=== PATIENT | female | born 1990 | race African-American/Black ===

== ENCOUNTER 2017-09-28 14:39 | Emergency (ER) | payer OTHER ==
--- NOTE | 2017-09-28 15:12 | PDOC ---
Attending Attestation - Resident Resident Name: Phil Goyal - HPI HPI: 09/28/17 15:41 Pt with history of severe MR, seizure disorder, presents to the ED complaining of generalized tonic clonic seizure today. Patient has a known history of seizure disorder, for which she takes phenobarb, and is at her baseline as per caretakers. Appeared to be in her usual state of health last night. - Physicial Exam PE: 09/28/17 15:50 Agree with resident's exam. Pt is non verbal and opens her eyes but does not follow commands. Has bilateral upper extremity contractures. Abdomen is soft and non tender. Lungs are clear. - Medical Decision Making 09/28/17 15:56 Pt presents to the ED after seizure. has know seizure disorder history for which she takes phenobarb. Will check labs to rule out electrolyte disturbance and check phenobarb level. Will reassess.
[2017-09-28 15:13] VITALS: TEMP 98.9; BMI 23.3
--- NOTE | 2017-09-28 15:21 | PDOC ---
History of Present Illness - General Chief Complaint: Seizure Stated Complaint: SEIZURE Time Seen by Provider: 09/28/17 15:11 - History of Present Illness Initial Comments: 09/28/17 17:17 The patient is a 26 year old female with history of cerebral palsy, seizures, developmental delay who presents for evaluation follow a seizure. The patient is non-verbal at baseline and is accompanied by an aid who assists in providing the history. The patient had a reported seizure at her program today prompting her presentation to the ED for evaluation. They note that the patient has a seizure once a year and is well controlled on phenobarb. They report that the patient's last seizure was a significant amount of time ago and is unsure of when her last seizure was. They report that the patient is back to baseline on presentation to the ED. Past History - Past Medical History Allergies/Adverse Reactions: Allergies Allergy/AdvReac Type Severity Reaction Status Date / Time No Known Allergies Allergy Verified 09/28/17 15:10 Home Medications: Ambulatory Orders Cholecalciferol (Vitamin D3) [Vitamin D3] 2,000 unit PO DAILY 10/07/13 Multivit with Iron,Minerals [Cerovite Jr] 1 each PO DAILY 10/07/13 Phenobarbital 8.1 mg PO HS 10/07/13 Polyethylene Glycol 3350 [Miralax 119 gm Btl -] 17 gr PO DAILY 10/07/13 Sennosides [Senna] 564 mg PO DAILY 10/07/13 Docusate Sodium 300 mg PO HS 09/28/17 Pedi Multivit 158/Iron/Vit K1 [Cerovite Jr Tablet Chew] 1 each PO DAILY Phenobarbital 64 mg PO HS 09/28/17 Asthma: Yes COPD: No Seizures: Yes - Immunization History Immunization Up to Date: Yes - Suicide/Smoking/Psychosocial Hx Smoking History: Never smoked Have you smoked in the past 12 months: No Information on smoking cessation initiated: No Hx Alcohol Use: No Drug/Substance Use Hx: No Review of Systems - Review of Systems Able to Perform ROS?: No (Cerebral Palsy) *Physical Exam - Vital Signs Last Vital Signs Temp Pulse Resp BP Pulse Ox 98.9 F 112 H 20 112/80 100 09/28/17 15:10 09/28/17 15:10 09/28/17 15:10 09/28/17 15:10 09/28/17 15:10 - Physical Exam Comments: 09/28/17 18:20 General Appearance: Nourished. No Apparent Distress HEENT: No Pharyngeal Erythema, Tonsillar Exudate, Tonsillar Erythema Neck: No Cervical Lymphadenopathy Respiratory/Chest: Lungs Clear, Normal Breath Sounds. No Crackles, Rales, Rhonchi, Wheezing Cardiovascular: Regular Rhythm, Regular Rate. 2/6 Systolic murmur noted on exam. No Gallops, Rubs Gastrointestinal/Abdominal: Normal Bowel Sounds, Soft. No Guarding, Rebound, Tenderness Musculoskeletal: No CVA Tenderness Extremity: Normal Capillary Refill Integumentary: Normal Color, Dry, Warm Neurologic: Alert, At Baseline Mentally. Arms are contracted bilaterally. ED Treatment Course - LABORATORY CBC & Chemistry Diagram: 09/28/17 16:38 09/28/17 16:38 Medical Decision Making - Medical Decision Making 09/28/17 18:22 The patient is a 26 year old female with history of cerebral palsy, seizures, developmental delay who presents for evaluation follow a seizure. Differential includes but is not limited to: Normal Seizure, Breakthrough Seizure, Infectious , Metabolic derangement. Given the patient's history, we will obtain a cbc, cmp , ua, urine culture to evaluate further for possible etiologies. It is likely the patient had her normal seizure today. We will continue to monitor and reassess while here in the ED. 09/28/17 18:59 CBC, cmp, ua are unremarkable. The patient has been clinically stable on exam here. We are comfortable discharging the patient home at this time with neurology follow up. The patient has her own neurologist at her facility. We discussed the results, plan, and return precautions with the patient's aid who voiced understanding and is agreeable with the plan. *DC/Admit/Observation/Transfer Diagnosis at time of Disposition: Seizure Qualifiers: Convulsion type: unspecified Qualified Code(s): R56.9 - Unspecified convulsions - Discharge Dispostion Disposition: HOME Condition at time of disposition: Stable Decision to Admit order: No - Referrals - Patient Instructions Printed Discharge Instructions: DI for Seizure Disorder -- Adult Additional Instructions: Please return to the ER if you experience concerning or worsening symptoms including worsening seizures, fevers, or other concerning symptoms. Your lab results were normal here in the ER. Please make sure that you call to schedule a follow up appointment with your neurologist and primary care provider within 1 day to discuss your ER visit and further management of your symptoms. - Post Discharge Activity
[2017-09-28 16:57] LABS: BASO % 0.5 % (0-2.0); EOS % 1.2 % (0-4.5); HEMATOCRIT 41.2 % (32.4-45.2); HEMOGLOBIN 13.6 GM/dL (10.7-15.3); MCH 31.6 pg (25.7-33.7); MEAN CELL VOLUME 95.9 fl (80-96); MONO % 7.2 % (3.8-10.2); NEUT % 72.1 % (42.8-82.8); PLATELET COUNT 537 K/MM3 (134-434); RDW 14.4 % (11.6-15.6); WHITE BLOOD COUNT 11.6 K/mm3 (4.0-10.0)
[2017-09-28 17:31] LABS: ALBUMIN 3.8 g/dl (3.4-5.0); ANION GAP 8 (8-16); BLOOD UREA NITROGEN 6 mg/dL (7-18); CALCIUM 9.2 mg/dL (8.5-10.1); CHLORIDE 103 mmol/L (98-107); CO2 26 mmol/L (21-32); GLUCOSE,RANDOM 87 mg/dL (74-106); POTASSIUM 4.9 mmol/L (3.5-5.1); SGOT/AST 26 U/L (15-37); SGPT/ALT 50 U/L (12-78); SODIUM 137 mmol/L (136-145)
[2017-09-28 17:33] LABS: ALK PHOS 126 U/L (45-117); BILIRUBIN,TOTAL 0.3 mg/dL (0.2-1.0); CREATININE 0.5 mg/dL (0.55-1.02); TOT PROT 7.9 g/dl (6.4-8.2)
[2017-09-28 18:39] LABS: URINE APPEARANCE CLOUDY; URINE BILIRUBIN NEGATIVE (<2.0 mg/dL); URINE COLOR YELLOW; URINE GLUCOSE (UA) NEGATIVE (NEGATIVE); URINE KETONE NEGATIVE (NEGATIVE); URINE LEUK ESTERASE NEGATIVE (NEGATIVE); URINE NITRITE NEGATIVE (NEGATIVE); URINE PROTEIN NEGATIVE (NEGATIVE); URINE UROBILINOGEN NEGATIVE mg/dL (0.2-1.0)
[2017-09-28 20:17] VITALS: BP 108/74; PULSE 80
== END 2017-09-28 21:05 ==
LOC: JER 14:39
DX: G40.909 Epilepsy, unspecified, not intractable, without status epilepticus (principal); G80.9 Cerebral palsy, unspecified; F72 Severe intellectual disabilities
CPT/HCPCS: 36415; 80053; 80184; 81003; 85025; 87086; 99282-25; G0480

== ENCOUNTER 2018-05-12 12:08 | Emergency (ER) | payer OTHER ==
[2018-05-12 12:17] VITALS: BP 0/0; PULSE 53; TEMP 98.5; BMI 30.2
--- NOTE | 2018-05-12 14:06 | PDOC ---
History of Present Illness - General History Source: Care Provider Exam Limitations: Physical Impairment, Other (non verbal) - History of Present Illness Initial Comments: 05/12/18 14:02 27 yo F from [facility], w/ a h/o MR, CP, asthma, seizures, comes in with attendant for evaluation of L foot swelling and redness since this am, no other complaints today, no fever/chills, no change in PO intake, no change in behavior , no recent trauma, no fall, no swelling/pain/redness anywhere else. 05/12/18 19:41 <Lauryn Jenkins - Last Filed: 05/12/18 19:41> <Dorcas Freeman - Last Filed: 05/13/18 09:53> - General Chief Complaint: Pain, Acute Stated Complaint: SWELLING ON RT LEG Time Seen by Provider: 05/12/18 12:47 Past History - Past Medical History Asthma: Yes COPD: No Seizures: Yes - Immunization History Immunization Up to Date: Yes - Suicide/Smoking/Psychosocial Hx Smoking History: Never smoked Have you smoked in the past 12 months: No Hx Alcohol Use: No Drug/Substance Use Hx: No <Lauryn Jenkins - Last Filed: 05/12/18 19:41> <Dorcas Freeman - Last Filed: 05/13/18 09:53> - Past Medical History Allergies/Adverse Reactions: Allergies Allergy/AdvReac Type Severity Reaction Status Date / Time No Known Allergies Allergy Verified 05/12/18 12:13 Home Medications: Ambulatory Orders Cholecalciferol (Vitamin D3) [Vitamin D3] 2,000 unit PO DAILY 10/07/13 Multivit with Iron,Minerals [Cerovite Jr] 1 each PO DAILY 10/07/13 Phenobarbital 8.1 mg PO HS 10/07/13 Polyethylene Glycol 3350 [Miralax 119 gm Btl -] 17 gr PO DAILY 10/07/13 Sennosides [Senna] 564 mg PO DAILY 10/07/13 Docusate Sodium 300 mg PO HS 09/28/17 Pedi Multivit 158/Iron/Vit K1 [Cerovite Jr Tablet Chew] 1 each PO DAILY Phenobarbital 64 mg PO HS 09/28/17 Cephalexin [Keflex] 500 mg PO Q8H 10 Days #30 capsule 05/12/18 Sulfamethoxazole/Trimethoprim [Bactrim Ds -] 1 tab PO BID 10 Days #20 tablet 04/18 Review of Systems - Review of Systems Able to Perform ROS?: No (Patient non verbal) <Lauryn Jenkins - Last Filed: 05/12/18 19:41> *Physical Exam - Vital Signs Last Vital Signs Temp Pulse Resp BP Pulse Ox 98.5 F 53 L 16 0/0 L 100 05/12/18 12:13 05/12/18 12:13 05/12/18 12:13 05/12/18 12:13 05/12/18 12:13 - Physical Exam General Appearance: Yes: Nourished. No: Apparent Distress HEENT: positive: NILSA, Normal ENT Inspection. negative: Pale Conjunctivae, Scleral Icterus (R), Scleral Icterus (L) Respiratory/Chest: negative: Respiratory Distress, Accessory Muscle Use Cardiovascular: positive: Regular Rhythm, Regular Rate Extremity: positive: Normal Capillary Refill, Other (L foot w/ mild swelling, b/ l feet with mild erythema distally L>R foot. (+)L foot warmth medially. No tenderness ellicited on exam. Unable to assess ROM due to patient's state. No streaking going up the leg. Faint but equal pulses bilaterally). negative: Tender, Pedal Edema Integumentary: positive: Dry. negative: Jaundice, Rash Neurologic: positive: Other (Non verbal) <Lauryn Jenkins - Last Filed: 05/12/18 19:41> - Vital Signs Last Vital Signs Temp Pulse Resp BP Pulse Ox 98.5 F 53 L 16 0/0 L 100 05/12/18 12:13 05/12/18 12:13 05/12/18 12:13 05/12/18 12:13 05/12/18 12:13 <Dorcas Freeman - Last Filed: 05/13/18 09:53> Moderate Sedation - Procedure Monitoring Vital Signs: Procedure Monitoring Vital Signs Temperature 98.5 F 05/12/18 12:13 Pulse Rate 53 L 05/12/18 12:13 Respiratory Rate 16 05/12/18 12:13 Blood Pressure 0/0 L 05/12/18 12:13 O2 Sat by Pulse Oximetry (%) 100 05/12/18 12:13 <Lauryn Jenkins - Last Filed: 05/12/18 19:41> - Procedure Monitoring Vital Signs: Procedure Monitoring Vital Signs Temperature 98.5 F 05/12/18 12:13 Pulse Rate 53 L 05/12/18 12:13 Respiratory Rate 16 05/12/18 12:13 Blood Pressure 0/0 L 05/12/18 12:13 O2 Sat by Pulse Oximetry (%) 100 05/12/18 12:13 <Dorcas Freeman - Last Filed: 05/13/18 09:53> ED Treatment Course - RADIOLOGY Radiology Studies Ordered: Category Date Time Status ANKLE & FOOT-LEFT* [RAD] Stat Radiology 05/12/18 13:03 Completed <Lauryn Jenkins - Last Filed: 05/12/18 19:41> Medical Decision Making - Medical Decision Making 05/12/18 14:08 27 yo F w/ likely foot cellulitis R/O fracture. WIll do xrays and reassess Blood pressure by me: 94/54. According to [facility], last BP was 97/60 05/12/18 14:[address] Goss from [facility], made him aware of the assessment and plan. ([phone]). Pt will be discharged on keflex and bactrim with close follow up. Return for worsening/concerning symptoms He agreed with plan 05/12/18 14:14 <Lauryn Jenkins - Last Filed: 05/12/18 19:41> *DC/Admit/Observation/Transfer - Discharge Dispostion Decision to Admit order: No <Lauryn Jenkins - Last Filed: 05/12/18 19:41> - Attestations Physician Attestion: I reviewed the case with the mid-level practitioner and agree with the mid- level practitioner's assessment, diagnosis and disposition. <Dorcas Freeman - Last Filed: 05/13/18 09:53> Diagnosis at time of Disposition: Cellulitis of foot - Discharge Dispostion Disposition: HOME Condition at time of disposition: Stable - Prescriptions Prescriptions: Cephalexin [Keflex] 500 mg PO Q8H 10 Days #30 capsule Sulfamethoxazole/Trimethoprim [Bactrim Ds -] 1 tab PO BID 10 Days #20 tablet - Patient Instructions Printed Discharge Instructions: DI for Cellulitis -- Adult Additional Instructions: Please keep a close eye on the foot and monitor for signs of worsening redness, worsening warmth, or red streaking going up the foot/leg. Bring Brokolyn back for any signs of worsening symptoms, including fever, change in appetite, change in behavior, change in vital signs. Follow up with PMD and take both antibitics as prescribed, with food.
== END 2018-05-12 14:54 ==
LOC: JER 12:08
DX: L03.116 Cellulitis of left lower limb (principal); G80.9 Cerebral palsy, unspecified; F79 Unspecified intellectual disabilities; G40.909 Epilepsy, unspecified, not intractable, without status epilepticus; J45.909 Unspecified asthma, uncomplicated
CPT/HCPCS: 73610-TC-LT-FY; 73630-TC-LT; 99281-25

== ENCOUNTER 2021-05-11 06:12 | Emergency (ER) | payer OTHER ==
[2021-05-11 06:37] VITALS: TEMP 98.9; BMI 20.5
[2021-05-11 08:09] VITALS: BP 110/80; PULSE 86
== END 2021-05-11 08:34 | disposition home or self-care (01) ==
LOC: JER 06:12
DX: H00.013 Hordeolum externum right eye, unspecified eyelid (principal); H02.843 Edema of right eye, unspecified eyelid
CPT/HCPCS: 99283-25

== ENCOUNTER 2023-11-23 12:11 | Emergency (ER) | payer OTHER ==
[2023-11-23 12:33] VITALS: BP 105/66; PULSE 97; RESP 18; TEMP 97.3; BMI 23.8
[2023-11-23] MEDS ORDERED: [UNRECOGNIZED DRUG - OTHER] IVPB ONE (13:57)
[2023-11-23 15:30] LABS: URINE APPEARANCE CLOUDY; URINE BILIRUBIN NEGATIVE (NEGATIVE); URINE COLOR YELLOW; URINE GLUCOSE (UA) NEGATIVE (NEGATIVE); URINE KETONE 2+ (NEGATIVE); URINE LEUK ESTERASE NEGATIVE (NEGATIVE); URINE NITRITE NEGATIVE (NEGATIVE); URINE PROTEIN NEGATIVE (NEGATIVE); URINE UROBILINOGEN 0.2 mg/dL (0.2-1.0)
[2023-11-23 15:55] LABS: BASO % 0.1 % (0-2.0); EOS % 0.2 % (0-4.5); HEMATOCRIT 39.1 % (32.4-45.2); HEMOGLOBIN 13.1 GM/dL (10.7-15.3); LYMPH % 12.3 % (8-40); MCH 30.8 pg (25.7-33.7); MCHC 33.4 g/dl (32.0-36.0); MEAN CELL VOLUME 92.1 fl (80-96); MEAN PLT VOLUME 7.9 fl (7.5-11.1); MONO % 4.3 % (3.8-10.2); NEUT % 83.1 % (42.8-82.8); PLATELET COUNT 539 10^3/uL (134-434); RBC 4.25 M/mm3 (3.60-5.2); RDW 14.2 % (11.6-15.6); WHITE BLOOD COUNT 12.2 K/mm3 (4.0-10.0)
[2023-11-23 16:39] LABS: POTASSIUM 4.6 mmol/L (3.5-5.1)
[2023-11-23 16:41] LABS: ALBUMIN 3.5 g/dl (3.4-5.0); BLOOD UREA NITROGEN 3.6 mg/dL (7-18); CALCIUM 9.7 mg/dL (8.5-10.1)
[2023-11-23 16:45] LABS: CREATININE 0.3 mg/dL (0.55-1.3)
[2023-11-23 16:46] LABS: BILIRUBIN,TOTAL 0.3 mg/dL (0.2-1); TOT PROT 7.6 g/dl (6.4-8.2)
[2023-11-23] MEDS ORDERED: DEXTROSE 50%-WATER 25 GM/50 ML DISP.SYRIN ONE (18:01)
[2023-11-23] MEDS: DEXTROSE 50%-WATER - 25 GM/50 ML VIAL IVPUSH ONE (18:24)
== END 2023-11-23 20:41 | disposition home or self-care (01) ==
LOC: JER 12:11
PROC: 3E033GC Introduction of Other Therapeutic Substance into Peripheral Vein, Percutaneous Approach (ICD-10-PCS; principal; 2023-11-23)
DX: G40.909 Epilepsy, unspecified, not intractable, without status epilepticus (principal)
CPT/HCPCS: 36415; 70450-TC; 80053; 80177; 81003; 82962; 83735; 84100; 85025; 87086; 99284-25